=== PATIENT | female | born 1960 | race Caucasian/White ===

== ENCOUNTER 2018-12-24 20:48 | Emergency (ER) | payer OTHER ==
[~2018-12-24] VITALS: Ht 170.2 cm; Wt 143.8 kg
[~2018-12-24 20:48] MED LIST: ASPIRIN EC81 M1 PO; CALCIUM 500 +1 EAC5 PO; CALCIUM 600 +1 EAC1 PO; CALCIUM 600 +1 EAC5 PO; CELEXA20 MG PO; CENTRUM SILVER1 EAC3 PO; CENTRUM SILVER1 EAC4 PO; CRESTOR20 MG PO; ELESTRIN144 GM TOP; HYDROCODON-ACE1 EAC7 PO; LORTAB 5-500 T1 EAC1 PO; NEURONTIN 300300 M1 PO; NORCO 5-325 TA1 EACH PO; PERCOCET 10-321 EACH PO; PERCOCET 5-3251 EACH PO; PREDNISONE 20 M20 MG PO; SALSALATE 750750 MG PO; VALIUM5 MG PO; VICODIN 5-5001 EACH PO; WELLBUTRIN 75 M75 M1 PO; WELLBUTRIN XL150 MG PO; ZANTAC 150MG T150 M1 PO; [UNRECOGNIZED DRUG - CODE] PO
[2018-12-24] MEDS ORDERED: HM DOUBLE ANT28.4 GM TOP (20:55)
[2018-12-24] MEDS ORDERED: NORCO 5-325 TA1 EACH PO (21:02)
[2018-12-24] MEDS ORDERED: BACITRACIN28.4 G1 TOP (21:40)
[2018-12-24 21:58] VITALS: BP 134/47
== END 2018-12-24 22:01 | disposition home or self-care (01) ==
LOC: ER 20:48
DX: T21.01XA Burn of unspecified degree of chest wall, initial encounter (principal); K21.9 Gastro-esophageal reflux disease without esophagitis; E78.00 Pure hypercholesterolemia, unspecified; F32.9 Major depressive disorder, single episode, unspecified; F41.9 Anxiety disorder, unspecified; Z90.710 Acquired absence of both cervix and uterus; Z98.890 Other specified postprocedural states; X58.XXXA Exposure to other specified factors, initial encounter; Y93.89 Activity, other specified; Y92.89 Other specified places as the place of occurrence of the external cause; Y99.8 Other external cause status

== ENCOUNTER 2018-12-31 08:58 | Inpatient (IN) | payer OTHER ==
[~2018-12-31] VITALS: Ht 170.2 cm; Wt 142.9 kg
[~2018-12-31 08:58] MED LIST changes: +BACITRACIN28.4 G1 TOP; +HM DOUBLE ANT28.4 GM TOP
[2019-03-25 14:28] LABS: HEMATOCRIT 42.8 % (37.0-47.0); MCH 26.5 pg (26.0-34.0); MCHC 32.8 g/dL (28.0-37.0); MCV 80.8 fL (80.0-100.0); RBC 5.3 mil/uL (4.20-5.00); RDW 15.6 % (10.5-14.5); WBC 11.2 thou/uL (4.0-11.0)
[2019-03-25 14:32] LABS: URINE BILIRUBIN NEGATIVE (Negative); URINE BLOOD NEGATIVE (Negative); URINE CLARITY CLEAR; URINE COLOR YELLOW; URINE GLUCOSE-RANDOM* NEGATIVE (Negative); URINE KETONES TRACE (Negative); URINE LEUKOCYTES-REFLEX NEGATIVE (Negative); URINE NITRITE-REFLEX NEGATIVE (Negative); URINE PROTEIN (DIPSTICK) 1+ (Negative); URINE UROBILINOGEN 0.2 E.U./dl (0.2-1.0)
[2019-03-25 14:37] LABS: ALBUMIN 4.2 g/dL (3.4-5.0); CALCIUM 10.4 mg/dL (8.5-10.1); POTASSIUM 4.5 mmol/L (3.5-5.1)
[2019-03-25 14:41] LABS: BACTERIA-REFLEX None Seen /HPF (None Seen); CRYSTALS None Seen /LPF (None Seen); HYALINE CASTS 4-10 Moderate /LPF (None Seen); PROTIME 9.9 Seconds (9.3-11.4); SQUAMOUS 4-10 Moderate /LPF (0-3); URINE RBC 0-2 Rare /HPF (0-2); URINE WBC-REFLEX 6-15 Few /HPF (0-5)
--- NOTE | 2019-03-25 18:07 | EKG ---
[place] [address] [facility] [place] [address] ELECTROCARDIOGRAM REPORT Name: VALENTIN DOTY Room #: PRE IN [facility]#: [id number] ������������������ Admission: ������������������ Attend Phys: Guanakito Smith MD Discharge: ������������������ Date of : 58 Report #: [id number] ����������������������������������������������������������������� [id number] THIS REPORT FOR: //name// [facility] Test Date: 2019-03-25 Test Time: 14:02:29 Pat Name: VALENTIN DOTY Department: Room: Gender: F Addiction Specialist: Alonso DAVE : 1960 Requested By: Guanaktio Smith Order Number: [id number] MD: Kev Lucero Measurements Intervals [place] Rate: 79 P: 73 [place]: 151 QRS: 11 QRSD: 88 T: 84 QT: 348 QTc: 399 Interpretive Statements Sinus rhythm Low voltage, precordial leads Nonspecific T abnormalities, lateral leads Compared to ECG 02/15/2016 14:08:51 Low QRS voltage now present T-wave abnormality still present Electronically Signed On 03-25-2019 18:06:51 CDT by Kev Lucero [email or web address] ��������������������������������������������� <ELECTRONICALLY SIGNED> ���������������������������������������� By: Kev Lcuero MD ��������������������������������������������� 03/25/19 1806 140 140 Kev Lucero MD /EPI
[2019-03-28 09:45] VITALS: BP 141/72
[2019-03-28 18:02] VITALS: BP 130/65
--- NOTE | 2019-03-28 19:28 | NUR ---
ASSUMED CARE OF PT AT 1730 FROM SURGERY OF RIGHT KNEE. PT ALERT AND ORIENTED TIMES FOUR, VSS, 95%2L, IVF INFUSING PER ORDER. PT DENIES PAIN/SOA AT THIS TIME. NO ACUTE DISTRESS NOTED. WILL CONTINUE TO MONITOR.
[2019-03-28 19:44] VITALS: BP 115/47
[2019-03-29] VITALS (7 sets, daily range): BP systolic 112–133; BP diastolic 44–56
[2019-03-29 05:20] LABS: HEMATOCRIT 35.8 % (37.0-47.0); HEMOGLOBIN 11.9 gm/dL (12.0-15.0); MCH 26.8 pg (26.0-34.0); MCHC 33.1 g/dL (28.0-37.0); RBC 4.42 mil/uL (4.20-5.00); RDW 15.2 % (10.5-14.5); WBC 13.8 thou/uL (4.0-11.0)
--- NOTE | 2019-03-29 05:45 | NUR ---
ASSUMED CARE OF PT AT 1900 HRS. PT IS AO X 4. PT HAD SOME PAIN AT SURGICAL PAIN ONCE AMBULATED BUT THIS WAS MANAGED WITH PAIN MEDS. PT WAS ABLE TO GET SOME SLEEP THIS SHIFT. NO OTHER S/S OF ACUTE DISTRESS. WILL CONTINUE TO MONITOR.
--- NOTE | 2019-03-29 07:46 | O ---
[facility] [place] [place] [address] OPERATIVE REPORT Name: VALENTIN DOTY CASSIUS Room #: 456-P ADM IN M.R.#: [id number] Admission: 03/28/19 ������������������ Attend Phys: Guanakito Smith MD Discharge: ������������������ Date of : 58 Report #: [id number] THIS REPORT FOR: //name// CC: Guanakito Diaz DATE OF SERVICE: 03/28/2019 PREOPERATIVE DIAGNOSIS: End-stage degenerative arthritis, right knee with varus malalignment and medial compartment collapse. POSTOPERATIVE DIAGNOSIS: End-stage degenerative arthritis, right knee with varus malalignment and medial compartment collapse. PROCEDURE: Right knee medial compartment hemiarthroplasty. SURGEON: Guanakito Smith MD INDICATIONS: This obese, but otherwise healthy 58-year-old female presents with progressive right knee pain and progressive varus malalignment. She has had similar problems in the opposite side, which were benefited with a medial compartment hemiarthroplasty several years ago. She is anxious to go ahead with right knee hemiarthroplasty at this time. We have discussed the option of total knee replacement given her size and age, but she prefers a hemiarthroplasty given her previous experience and her current findings. DESCRIPTION OF PROCEDURE: The patient was taken to the operating room where she was placed under general anesthesia. Prophylactic intravenous antibiotics were administered. The right knee and leg were meticulously prepped and draped. A thigh tourniquet was applied and inflated to 300 mmHg. An anterior medial skin incision was made. This was carried through the retinaculum exposing the medial compartment of the joint. The articular surface of the patella and the lateral compartment were mildly involved and the medial compartment was much more severely involved. The appearance would suggest that a medial hemiarthroplasty would be reasonable for this patient. The Biomet Amanda Huff DBA [employer]overy knee system was utilized. The outrigger guide was placed and the proximal tibial cut made leaving room for approximately 5 mm of bearing implant. The tibia seemed best suited for a size A tibial tray. The knee then seemed to have adequate room for a 5 mm spacer with the knee in flexion. The femoral guide was then applied and the femoral cuts made. The knee was tested and was slightly tighter in extension with a 4 mm spacer working well there. Given this, the femur was shortened using a 1 mm spigot and the cutting reamer. Once again, another trial reduction with a small femur and a 5 mm spacer fit nicely. The knee demonstrated full knee extension and excellent flexion and good stability with significant improvement in the preoperative varus malalignment. The osteophytes along the margin of the femur and the medial border of the patella were [facility] [address] [place] [address] OPERATIVE REPORT Name: VALENTIN DOTY CASSIUS Room #: 456-P [facility] IN M.R.#: [id number] Admission: 03/28/19 ������������������ Attend Phys: Guanakito Smith MD Discharge: ������������������ Date of : 58 Report #: [id number] resected. The patella seemed to track nicely. The trial components were removed. Methyl methacrylate cement was mixed. This was injected into the tibia once the keel space had been appropriately reamed. The Biomet Cottle right medial tibial tray was then inserted using a size A. This seated nicely and appeared to be secure. Excess cement was removed from around its margin. The right twin peg small femoral component was inserted with appropriate cement technique. Excess cement was removed from its margin. The component seemed to seat nicely and appeared to be secure. A 5 mm meniscal bearing was then placed and snapped into position. It also seated nicely and appeared to be secure. The knee demonstrated full extension and flexion to about 140 degrees with satisfactory alignment, range of motion, the patella tracked nicely. The components appeared to be stable. At this point, the tourniquet was deflated after a total tourniquet time of 45 minutes. Good hemostasis was confirmed. The joint was copiously irrigated. The fascia was then closed with multiple #1 Vicryl sutures. The subcutaneous tissues were closed with 0 Monocryl. The skin was closed with skin hillary. A sterile dressing was applied. The patient was awakened and returned to recovery room in good condition. ��������������������������������������������� <ELECTRONICALLY SIGNED> ���������������������������������������� By: Guanakito Smith MD ��������������������������������������������� 03/29/19 0746 [id number] [id number] Guanakito Smith MD /nt
[2019-03-29 11:34] LABS: CALCIUM 8.9 mg/dL (8.5-10.1); CREATININE 0.8 mg/dL (0.6-1.0); POTASSIUM 4.5 mmol/L (3.5-5.1)
--- NOTE | 2019-03-29 13:13 | NUR ---
DISCHARGE PLANNING. ANTICIPATED DISCHARGE PLANNED FOR TOMORROW. PATIENT IS POST RIGHT KNEE MEDIAL COMPARTMENT HEMIARTHROPLASTY. HOME HEALTH SERVICES RECOMMENDED AT DISCHARGE. REFERRAL FAXED TO [facility]. ANTICIPATED DISCHARGE PLANNED FOR TOMORROW. [facility] AWARE AND WILL BE BY TO DO BEDSIDE CONSULTATION WITH PATIENT TODAY. FOLLOWING TO ASSIST WITH DISCHARGE.
--- NOTE | 2019-03-29 15:28 | NUR ---
PT ADMITTED RELATED TO RIGHT UNICOMPARTMENTAL KNEE REPLACEMENT. CM REVIEWED CHART AND SPOKE WITH CARE TEAM. CM MET WITH PT AT BEDSIDE THIS DAY. PT INDICATED SHE LIVES IN A HOUSE ALONE WITH A RAMP TO ENTER AND NO STEPS INSIDE. 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 PT INDICATED SHE HAS A FWW FOR USE UPON DC. PT INDICATED SHE WAS INTERESTED IN HOME HEALTH SERVICES UPON DC. CM SENT [facility]ERRAL TO [facility] AND THEY ARE ABLE TO ACCEPT PT FOR SERVICES UPON ANTIPCATED DISCHARGE TOMORROW. ORDERS ARE TO BE FAXED TO .
--- NOTE | 2019-03-29 18:45 | NUR ---
PATIENT DOING WELL POSTOPERATIVELY. PAIN WELL CONTROLLED WITH PERCOCET. SAT UP IN CHAIR MOST OF THE DAY. TOLERATING DIET WELL. VOIDING WITHOUT DIFFICULTY. AFEBRILE. WORKING HARD ON HER INCENTIVE SPIROMETRY. HAVING NUMBNESS TO RIGHT THIGH AND UNABLE TO STAND ON RIGHT LEG. HOPING THE NERVE BLOCK WILL WEAR OFF BY TOMORROW SO CAN GET UP AND MOVE MORE. VERY PLEASANT AND COOPERATIVE.
[2019-03-30 03:46] VITALS: BP 115/61
--- NOTE | 2019-03-30 06:11 | NUR ---
ASSUMED CARE OF PT AT 1900HRS. PT IS AOX4 AND WAS ABLE TO GET SOME SLEEP. PT IS POST OP DAY 2 AND WOKE UP WITH SOME BREAKTHROUGH PAIN. PT WAS MEDICATED AND FELT SOME RELIEF. NO OTHER S/S OF ACUTE DISTRESS. WILL CONTNUE TO MONITOR. POSSIBLE DC IN THE AM.
[2019-03-30 07:32] VITALS: BP 138/45
[2019-03-30 08:15] LABS: ABSOLUTE NEUTROPHILS 6.8 thou/uL (1.4-8.2); BASOPHILS 0.2 % (0.0-2.0); EOSINOPHILS 1.1 % (0.0-3.0); HEMATOCRIT 35.6 % (37.0-47.0); HEMOGLOBIN 11.9 gm/dL (12.0-15.0); LYMPHOCYTES 14.6 % (24.0-44.0); MCHC 33.5 g/dL (28.0-37.0); MCV 80.7 fL (80.0-100.0); MONOCYTES 11.7 % (1.0-8.0); PLATELET COUNT 217 thou/uL (150-400); POLYS 72.4 % (36.0-66.0); RBC 4.42 mil/uL (4.20-5.00); RDW 15.5 % (10.5-14.5); WBC 9.3 thou/uL (4.0-11.0)
[2019-03-30 08:58] LABS: CALCIUM 8.9 mg/dL (8.5-10.1); CREATININE 0.8 mg/dL (0.6-1.0); MAGNESIUM 1.6 mg/dL (1.8-2.4); POTASSIUM 4.2 mmol/L (3.5-5.1)
[2019-03-30 15:00] VITALS: BP 144/50
--- NOTE | 2019-03-30 19:29 | NUR ---
PT A&OX4, VSS, PAIN IN LEFT KNEE BEING MANAGED WITH NORCO AND MORPHINE. PT PARTICIPATED WITH PHYSICAL THERAPY TODAY, ABLE TO GO TO BATHROOM AND SIT IN CHAIR TODAY. JOSIANE RUBIO AND LEFT KNEE BANDAGED C/D/I. BED IN LOWEST POSITION, CALL LIGHT IN REACH. WILL CONTINUE TO MONITOR.
[2019-03-30 19:56] VITALS: BP 141/86
--- NOTE | 2019-03-31 04:05 | NUR ---
ASSUMED CARE OF PT AT 1900HRS. PT IS AOX4 AND WAS ABLE TO GET SOME SLEEP THIS SHIFT. PT HAD SOME BREAKTHROUGH PAIN AND WAS TREATED WITH MEDICATION. NO OTHER S/S OF ACUTE DISTRESS. WILL CONTINUE TO MONITOR.
[2019-03-31 04:56] LABS: HEMATOCRIT 35.2 % (37.0-47.0); HEMOGLOBIN 11.7 gm/dL (12.0-15.0); MCH 26.7 pg (26.0-34.0); MCHC 33.2 g/dL (28.0-37.0); MCV 80.4 fL (80.0-100.0); RBC 4.38 mil/uL (4.20-5.00); RDW 15.3 % (10.5-14.5); WBC 9.2 thou/uL (4.0-11.0)
[2019-03-31 05:39] VITALS: BP 139/41
[2019-03-31 07:55] VITALS: BP 126/54
[2019-03-31 15:03] VITALS: BP 138/60
--- NOTE | 2019-03-31 18:36 | NUR ---
PT A&OX4, VSS/NO DISTRESS, PAIN CONSTANT IN RIGHT KNEE. PT ABLE TO WALK TO BATHROOM WITH WALKER. PT STATES SHE HAS A BURNING SENSATION IN KNEE. FALL BUNDLE IN PLACE, CALL LIGHT IN REACH, WILL CONTINUE TO MONITOR.
[2019-03-31 20:00] VITALS: BP 135/76
[2019-04-01 04:00] VITALS: BP 151/57
--- NOTE | 2019-04-01 05:13 | NUR ---
ASSUMED CARE OF PT AT 1900HRS. THIS IS POST OF DAY 3. PT IS AOX4 AND WAS ABLE TO GET SOME SLEEP THIS SHIFT. PT WALKED TO THE BATHTOOM WITH 1 ASSIST AND WALKER. PT DID HAVE SOME BREAKTHROUGH PAIN THAT WAS MANAGED [facility] PAIN MEDS. NO OTHER S/S OF ACUTE DISTRESS. WILL CONTINUE TO MONITOR.
[2019-04-01 07:12] VITALS: BP 129/43
[2019-04-01 08:00] VITALS: BP 129/43
--- NOTE | 2019-04-01 13:06 | NUR ---
dp sent referral to [facility], patient may possible be ready today but will need authorization.
[2019-04-01 15:00] VITALS: BP 142/53
--- NOTE | 2019-04-01 16:59 | NUR ---
CM FOLLOWED UP WITH PT THIS AM AND INDICATED THAT CARE TEAM ARE RECOMMENDING SHORT TERM POST ACUTE CARE STAY AT ACUTE REHAB FACILITY. CM SPOKE WITH PT AT ABOUT MAR[facility], RHOP, AND 5N. PT INDICATED NO PREFERENCE. CM SENT REFERRAL TO [facility]. THEY RECIEVED IT AND INDICATED THAT PT LOOKS LIKE [facility]. THEY WILL DO IN PERSON EVAL TOMORROW. CM TO FOLLOW INDICATED WITH DC PLANNING.
--- NOTE | 2019-04-01 18:28 | NUR ---
Received awake on bed. Due medications given as prescribed. With SL at R hand- intact, flushing well. Complains of pain- due pain meds given with partial pain relief. able to walk with walker and gait belt to the bathroom- on falls risk- protocol observed. Vital signs stable the whole shift. Pt. had bath today, IV pulled out- no IV meds. Patient seen by Dr. Smith today and pt got agitated- went to patient's room. Dr. Smith talked to Dr. Pereyra re: pt's d/c plans. CM informed re: rehab placement- will check on it. Pt. requested to have dressing taken off and have a bath- Dr Smith agreed during his rounds that pt can have bath then to redress wound. Halie from Rehab called and asked about pt- to visit her Tues AM- pt updated.
[2019-04-01 21:46] VITALS: BP 144/76
--- NOTE | 2019-04-02 01:59 | NUR ---
ASSUMED CARE OF PT AT 1900HRS. PT AOX4 AND WAS ABLE TO SLEEP PART OF THER SHIFT. SURGICAL PAIN IS MANAGED WITH PO PAIN MEDS. NO OTHER S/S OF ACUTE DISTRESS. WILL CONTINUE TO MONITOR. REPORTED OFF TO NEW NURSE FOR THE REMAINDER OF THE SHIFT.
[2019-04-02 04:11] VITALS: BP 140/40
--- NOTE | 2019-04-02 06:39 | NUR ---
Pt. rested quietly during the night when checked on during frequent rounds. She c/o right knee pain and was given po pain meds (see emar) with some relief noted.
[2019-04-02 07:38] VITALS: BP 151/90
[2019-04-02 15:01] VITALS: BP 137/55
--- NOTE | 2019-04-02 15:33 | NUR ---
Received awake on bed. Due medications given as prescribed. Complained of constiation- Dr Ribeiro aware- laxative prescribed and given. Vital signs stable. Had OT/PT session today, tolerated well. Still waiting for rehab placement- CM aware, a/w insurance approval. Pt seen by [facility] staff today. Post op wound site dressing checked- site clean, dry and intact. On room air. Able to ambulate with moderate assist, walker and gait belt, able to sit out on chair.
[2019-04-02 19:55] VITALS: BP 136/55
--- NOTE | 2019-04-03 05:14 | NUR ---
Pt. rested quietly at intervals during the night when checked on during frequent rounds. She did get vocally loud at the dehydrogenation operator because she would not wipe her backside after toilet use. Software Engineer Intern was encouraging pt. to do it herself, so she can get prepared for self care at home. Pt. was given po pain med for c/o right knee pain (see emar) with some relief noted.
[2019-04-03 07:14] VITALS: BP 132/51
--- NOTE | 2019-04-03 10:02 | NUR ---
DIS PT IS FOR DC TODAY, PT NO IV ACCESS ON SHIFT CHANGE. DC PACKET AND MEDSCRIPTS PROVIDED. DRESSING CHANGE WITH AQUACEL DRESSING ON RT KNEE.
[2019-04-03 10:24] VITALS: BP 133/47
--- NOTE | 2019-04-03 12:14 | NUR ---
Discharge Planning: data recovery planner sent orders and dc paperwork, including [facility] fax [phone]
--- NOTE | 2019-04-04 09:37 | D ---
[facility] [place] [address] DISCHARGE SUMMARY Name: VALENTIN DOTY CASSIUS Room #: 456-P [facility] IN M.R.#: [id number] Admission: 03/28/19 ������������������ Attend Phys: Guanakito Smith MD Discharge: 04/03/19 ������������������ Date of : 58 Report #: [id number] THIS REPORT FOR: //name// CC: Guanakito Diaz DATE OF SERVICE: 04/03/2019 FINAL DIAGNOSES: End-stage degenerative osteoarthritis, right knee; obesity; hypertension; chronic pain syndrome with chronic narcotic use. OPERATIONS AND PROCEDURES: Right knee medial hemiarthroplasty. HISTORY: This heavy deconditioned 58-year-old female has progressive degenerative arthritis in both knees. She underwent left knee hemiarthroplasty several years ago with good result. She is admitted at this time for right knee hemiarthroplasty. She was admitted and taken to the operating room on 03/28/2019 and underwent right knee hemiarthroplasty procedure. Postoperatively, her course was difficult given her obesity, weakness, pain and limited pain tolerance. She has some psychological instability and was somewhat agitated and angry at times throughout the hospital stay. She made very slow progress with physical therapy requiring maximum assistance. At this point, it seems she probably could not return to her own home and arrangements were started for placement in a rehab facility and that was somewhat delayed due to administrative issues. She did continue with physical therapy and gradually did make some progress. At this point, she seems to be safe and stable and now feels she could manage at home with family and friend assistance. Her pain is still moderate and chronic and she is using chronic narcotic medications, which will make her postoperative rehab somewhat more difficult. DISCHARGE MEDICATIONS: Include oxycodone 5 mg every 4-6 hours p.r.n. for severe pain, hydrocodone 5 mg every 4-6 hours p.r.n. for more moderate pain, Xarelto 10 mg daily, Crestor 20 mg daily, Zantac 150 mg b.i.d., gabapentin 900 mg t.i.d., multivitamins once daily, Celexa 20 mg daily. She will continue a regular diet at home. She states she has assistance from friends and family at home. She will continue with her walker for protected ambulation. She states she is able to manage safely in her own home with this assistance. I have asked her to call me should there be any problems or questions. We will otherwise plan to see her back in the office in about 1 week for followup and suture removal. ��������������������������������������������� <ELECTRONICALLY SIGNED> ���������������������������������������� By: Guanakito Smith MD ��������������������������������������������� 04/04/19 0937 [id number] Guanakito Smith MD /nt
== END 2019-04-03 16:10 | disposition home health service (06) | DRG 470 ==
LOC: PRE 08:58 → 4W 03-28 05:25 → TBA 03-28 05:25 → PRE 03-28 05:32 → 4W 03-28 17:58 → ENTRNSPT 04-03 14:50 → EDTRNSPTSTS 04-03 15:24 → 4W 04-03 16:10
PROVIDERS: Nurse Practitioner; ADMIT Orthopaedic Surgery
PROC: 0SRC0L9 Replacement of Right Knee Joint with Medial Unicondylar Synthetic Substitute, Cemented, Open Approach (ICD-10-PCS; principal; 2019-03-28)
DX: M17.11 Unilateral primary osteoarthritis, right knee (principal); D62 Acute posthemorrhagic anemia; Z68.42 Body mass index [BMI] 45.0-49.9, adult; F41.9 Anxiety disorder, unspecified; E66.9 Obesity, unspecified; F32.9 Major depressive disorder, single episode, unspecified; E78.5 Hyperlipidemia, unspecified; G89.29 Other chronic pain; M54.9 Dorsalgia, unspecified; D72.829 Elevated white blood cell count, unspecified; K59.00 Constipation, unspecified; Z87.891 Personal history of nicotine dependence; Z79.899 Other long term (current) drug therapy
CPT/HCPCS: 10047; 50010; 50101; 50415; 51130; 51225; 51412; 52056; 55262; 56525; 57095; 57104; 57174; 57181; 62110; 62900; 64039; 64043; 70005